=== PATIENT | male | born 1975 | race Caucasian/White ===

== ENCOUNTER 2017-06-18 01:33 | Emergency (ER) | payer SELFPAY ==
[~2017-06-18] VITALS: Ht 139.7 cm; Wt 59.0 kg
[2017-06-18 01:35] VITALS: BP 152/108
--- NOTE | 2017-06-18 01:57 | NUR ---
BIBA TO ER OF1
--- NOTE | 2017-06-18 02:19 | NUR ---
Patient being evaluated by physician.
[2017-06-18 03:00] VITALS: BP 142/91
--- NOTE | 2017-06-18 03:00 | NUR ---
Patient discharged with v/s stable. Written and verbal after care instructions given and explained. Patient alert, oriented and verbalized understanding of instructions. Ambulatory with steady gait. All questions addressed prior to discharge. ID band removed. Patient advised to follow up with PMD. Rx of Fiorocet given. Patient educated on indication of medication including possible reaction and side effects. Opportunity to ask questions provided and answered.
== END 2017-06-18 03:00 | disposition home or self-care (01) ==
LOC: MED 01:33
DX: R51 Headache (principal); E34.3 Short stature due to endocrine disorder; R03.0 Elevated blood-pressure reading, without diagnosis of hypertension; Z88.0 Allergy status to penicillin
CPT/HCPCS: 70450; 99284